=== PATIENT | female | born 1990 | race Caucasian/White ===

== ENCOUNTER 2024-07-04 10:14 | Emergency (ER) | payer BC ==
[~2024-07-04] VITALS: Ht 165.1 cm; Wt 67.1 kg
[2024-07-04] MEDS ORDERED: ONDANSETRON ODT 4 MG TAB.RAPDIS ONE (10:58)
[2024-07-04] MEDS ORDERED: IBUPROFEN 200 MG TABLET ONE ×2 (10:58→10:59)
[2024-07-04] MEDS ORDERED: ACETAMINOPHEN 500 MG TABLET ONE (10:58)
[2024-07-04] MEDS: ONDANSETRON ODT 4 MG TAB.RAPDIS SL ONE (11:02)
[2024-07-04] MEDS: IBUPROFEN 200 MG TABLET PO ONE (11:02)
[2024-07-04] MEDS: ACETAMINOPHEN 500 MG TABLET PO ONE (11:02)
[2024-07-04] MEDS ORDERED: HYDR-501 PO (11:11)
[2024-07-04] MEDS ORDERED: ONDA4TAB11 PO (11:11)
[2024-07-04 11:18] VITALS: BP 131/93; O2SAT 99
== END 2024-07-04 11:22 | disposition home or self-care (01) ==
LOC: ER 10:14
DX: S06.0XAA Concussion with loss of consciousness status unknown, initial encounter (principal); W18.39XA Other fall on same level, initial encounter; Y93.89 Activity, other specified; Y92.89 Other specified places as the place of occurrence of the external cause; Y99.8 Other external cause status
CPT/HCPCS: A4606; A4663; A9150; Q0162